=== PATIENT | female | born 2000 | race Caucasian/White ===

== ENCOUNTER 2024-11-14 22:57 | Emergency (ER) | payer OTHER ==
[~2024-11-14] VITALS: Ht 162.6 cm; Wt 84.0 kg
[2024-11-14 23:13] VITALS: O2SAT 100
[2024-11-14] MEDS: SODIUM CHLORIDE 0.9% 1,000 ML IV ONE (23:43)
[2024-11-14] MEDS: ONDANSETRON HCL 4MG/2ML INJ IV ONE (23:43)
[2024-11-14 23:46] LABS: BASOPHILS % 0.4 % (0.0-2.0); EOSINOPHILS % 1.1 % (0.0-5.0); HEMATOCRIT. 34.2 % (36.0-48.0); HEMOGLOBIN. 11.6 g/dL (12.0-16.0); LYMPHOCYTES % 22.3 % (20.0-50.0); MEAN CORPUSCULAR HEMOGLOBIN 28.7 pg (28.0-32.0); MEAN CORPUSCULAR VOLUME 84.4 fL (81.0-99.0); MEAN PLATELET VOLUME 7.7 fl (7.4-10.4); MONOCYTES % 10.5 % (2.0-8.0); NEUTROPHILS % 65.7 % (40.0-76.0); PLATELET 216 x1000/uL (130-400); RED BLOOD CELL COUNT 4.05 mill/uL (4.2-5.4); RED CELL DISTRIBUTION WIDTH 14.4 % (11.6-14.6); WHITE BLOOD COUNT 8.7 x1000/uL (4.5-11.0)
[2024-11-14 23:51] LABS: CHLORIDE 104 mEq/L (98-107)
[2024-11-14 23:52] LABS: POTASSIUM 3.4 mEq/L (3.5-5.1); SODIUM 138 mEq/L (136-145)
[2024-11-14 23:53] VITALS: TEMP 36.5
[2024-11-14 23:53] LABS: CARBON DIOXIDE 25 mEq/L (21-32)
[2024-11-14 23:58] LABS: CREATININE 0.6 mg/dL (0.6-1.0); GLUCOSE 84 mg/dL (70-105); UREA NITROGEN BLOOD 7 mg/dL (9-23)
[2024-11-15] LABS: ALANINE AMINOTRANSFERASE < 7 IU/L (10-49); ASPARTATE AMINOTRANSFERASE 13 IU/L (<34); BILIRUBIN DIRECT < 0.1 mg/dL (<=3.0); BILIRUBIN TOTAL 0.2 mg/dL (0.1-1.0); PROTEIN TOTAL 6.6 g/dL (6.0-8.3)
[2024-11-15 00:13] LABS: B-HCG QUANTITATIVE 7989 mIU/mL (<6)
[2024-11-15 01:20] LABS: CLARITY URINE CLEAR (CLEAR); COLOR URINE YELLOW (YELLOW); GLUCOSE URINE NEGATIVE (NEGATIVE); KETONES URINE NEGATIVE (NEGATIVE); LEUKOCYTE ESTERASE URINE NEGATIVE (NEGATIVE); NITRITE URINE NEGATIVE (NEGATIVE); OCCULT BLOOD URINE NEGATIVE (NEGATIVE); PROTEIN URINE NEGATIVE (NEGATIVE); SPECIFIC GRAVITY URINE 1.009 (1.005-1.030); UROBILINOGEN URINE 0.2 E.U./dL (0.2-1.0)
[2024-11-15 01:25] VITALS: BP 100/56; PULSE 78; RESP 16; O2SAT 99
== END 2024-11-15 01:33 | disposition left against medical advice (07) ==
LOC: ER 22:57
DX: O21.2 Late vomiting of pregnancy (principal); O99.891 Other specified diseases and conditions complicating pregnancy; Z3A.31 31 weeks gestation of pregnancy
CPT/HCPCS: 99285; 96374; 76805; 96361; 80076; 80048; 84702; 83690; 85025; 86850; 86900; 86901; 36415; 81003; 81025; J2405; J7030